=== PATIENT | male | born 1970 | race Caucasian/White ===

== ENCOUNTER 2020-03-07 09:23 | Day surgery (SDC) | payer OTHER ==
[2020-03-04 12:22] VITALS: BMI 34.8
[2020-03-07] MEDS ORDERED: BUPIVACAINE HCL/PF 0.25% (2.5MG/ML) 10 ML VIAL ONE (12:03)
[2020-03-07] MEDS ORDERED: LIDOCAINE HCL 1%, 10 MG/ML (20ML VIAL) ONE (12:03)
[2020-03-07] MEDS ORDERED: BUPIVACAINE HCL/PF 2.5 MG/ML - 30 ML VIAL IJ ONE (12:07)
[2020-03-07] MEDS ORDERED: LIDOCAINE HCL 1%, 10 MG/ML (20ML VIAL) NR ONE (12:07)
[2020-03-07] MEDS ORDERED: ONDANSETRON 4 MG/2 ML VIAL ONE (12:18)
[2020-03-07] MEDS ORDERED: DEXAMETHASONE SOD PHOSPHATE 4 MG/1 ML VIAL ONE (12:18)
--- NOTE | 2020-03-07 12:33 | OP ---
Operative Note - Note: Operative Date: 03/07/20 Pre-Operative Diagnosis: right trigger thumb Operation: right trigger thumb release, tendon sheath excision, mass/ganglion cyst excision Post-Operative Diagnosis: Same as Pre-op Surgeon: Angel Gambino Anesthesiologist/CONTINUOUS IMPROVEMENT ENGINEER: Karthik Cruz Anesthesia: Local, MAC Specimens Removed: right thumb tendon sheath excision, mass/ganglion Estimated Blood Loss (mls): 0 Drains, Volume Out (mls): 0 Blood Volume Replaced (mls): 0 Fluid Volume Replaced (mls): 1,000 Operative Report Dictated: Yes
--- NOTE | 2020-03-07 12:35 | HP ---
Satellite [facility] - Chief Complaint Chief Complaint: right thumb pain History of Present Illness: right trigger thumb History Source: Patient Limitations to Obtaining History: No Limitations - Past Medical History Allergies/Adverse Reactions: Allergies Allergy/AdvReac Type Severity Reaction Status Date / Time No Known Drug Allergies Allergy Verified 03/07/20 10:47 pollen extracts Allergy Verified 03/07/20 10:47 - Current Medications Current Medications: Home Medications Medication Instructions Recorded NK [No Known Home Medication] 03/04/20 Satellite Physical Exam - Physical Examination Vital Signs: Vital Signs Period Temp Pulse Resp BP Sys/Col[place]res Pulse Ox Last 24 Hr 98.7 F 90 18 148/85 98 General Appearance: Well Nourished ENT: Clear Lung: Clear to auscultation Heart: Regular rate & rhythm Breasts: Soft Abdomen: Soft Extremities: No edema Satellite Impression/Plan - Impression/Plan Impression: right trigger thumb Operative Procedure: right trigger thumb release, tendon sheath excision Date to be Performed: 03/07/20
[2020-03-07 13:02] VITALS: TEMP 97.8
--- NOTE | 2020-03-07 13:03 | SPEC ---
DATE OF OPERATION: 03/07/2020 PREOPERATIVE DIAGNOSIS: Right trigger thumb and possible mass. POSTOPERATIVE DIAGNOSIS: Right trigger thumb and mass/ganglion cyst. SURGERY: Right thumb trigger thumb release, tendon sheath excision and excision of mass/ganglion cyst. SURGEON: Sharmin Jaquez MD ASSISTANTS: None. ANESTHESIOLOGIST: Wil Cruz CRNA ANESTHESIA: Light MAC anesthesia and local injection of 10 mL 0.5% Marcaine, 1% lidocaine mixed. DRAINS: None. COMPLICATIONS: None. SPECIMEN: Right thumb tendon sheath and mass/ganglion cyst. BLOOD LOSS: None. BLOOD GIVEN: None. FLUID REPLACEMENT: Plasma-Lyte 1000 mL INDICATIONS: This patient is a 49-year-old male with a preoperative diagnosis of recurrent right trigger thumb with failed nonoperative treatments. After understanding the potential risks, complications, alternatives and benefits of surgery versus nonsurgical treatment, the patient elected to undergo this procedure. PROCEDURE: The patient was brought to the operating room. IV was placed. IV sedation was given. One gram of intravenous Ancef given. A tourniquet was applied to the right upper arm and the right upper extremity was prepped and draped in sterile fashion. The entire case was done under 3.8 loupe magnification. A marking pen was utilized to zuly out a longitudinal incision in an already existing skin crease at the base of the right thumb. Then 10 mL of 0.5% Marcaine mixed with 1% lidocaine was injected in and around the incision. The right upper extremity was elevated, exsanguinated with an Esmarch bandage and the tourniquet inflated to 250 mmHg. A No. 15 scalpel blade was utilized to cut down through the skin. Subcutaneous hemostasis was achieved with the bipolar cautery. Additional dissection was done with Littler scissors until I was able to directly visualize the A1 nataly sheath in its entirety. Self-retaining retractors were placed into the wound. A [place] elevator was used to free up the tissue on the radial side, the ulnar side distally and proximally under better visualization of A1 nataly sheath. Next, using a fresh No. 15 scalpel blade, I excised the central one-third of the A1 nataly sheath and passed it off the field as specimen, tendon sheath, right thumb. I then completed the release, both distally and proximally, and brought the FDS and FDP tendons out through the wound with a Ragnell retractor. There were no abnormal points of compression. I was able to move the right thumb without the tendons bunching up at all. I was able to identify an abnormal mass on the anterior aspect of the tendon sheath. It measured about 4-mm x 4-mm, roughly round, looked to be a blood-filled ganglion cyst that was adherent to the anterior aspect of the flexor tendon. It was dissected free of the flexor tendon with a Littler scissors and passed off the field as specimen, right thumb mass/ganglion cyst. The area was then copiously irrigated and washed out. I then checked one more time to make sure there were no abnormal points of compression. None were seen and therefore closure was begun. One stitch using 4-0 Vicryl was used in the deep dermal layer. Skin was reapproximated with 4-0 nylon sutures in a horizontal mattress fashion. The area was then washed and dried, covered with Xeroform gauze, sterile 4 x 4s, fluffs between the fingers, Webril and Coban. The tourniquet was taken down after a total tourniquet time of 15 minutes. There were no complications during the case. The patient tolerated the procedure well and was brought to the Ambulatory Recovery Room in stable condition. SHARMIN JAQUEZ M.D. [id number]
[2020-03-07 13:28] VITALS: BP 148/89; PULSE 84
--- NOTE | 2020-03-11 16:40 | PATH ---
Surgical Pathology Report Patient Name: NICOLE VELEZ Med. Rec. #: [id number] /Age/Gender: 1970 (Age: 49) / M Account: [id number] Location: [facility] Taken: 03/07/2020 Received: 03/07/2020 Reported: 03/11/2020 Physicians: Angel Gambino M.D. Specimen(s) Received RIGHT MASS THUMB Clinical History Right trigger thumb release Final Diagnosis THUMB, RIGHT, MASS, EXCISION: GANGLION CYST. Electronically Signed Lynsey Urena M.D. Gross Description Received in formalin, labeled "right mass thumb" are three pieces of pink barnes cystic appearing tissue, ranging from 0.3-1.2 cm in greatest dimension. Entirely submitted in one cassette. AE/03/07/2020 ebram/03/07/2020
== END 2020-03-07 13:30 | disposition left against medical advice (07) ==
LOC: FASU 09:23
PROVIDERS: ATTEND Orthopaedic Surgery
PROC: 0LB70ZZ Excision of Right Hand Tendon, Open Approach (ICD-10-PCS; 2020-03-07)
PROC: 0LN70ZZ Release Right Hand Tendon, Open Approach (ICD-10-PCS; principal; 2020-03-07 12:08)
DX: M65.311 Trigger thumb, right thumb (principal); M67.441 Ganglion, right hand
CPT/HCPCS: 88307-TC

== ENCOUNTER 2022-03-11 19:52 | Inpatient (IN) | payer SELFPAY ==
[2022-03-11] MEDS ORDERED: KETOROLAC TROMETHAMINE 15 MG/ML VIAL IVPUSH ONE (20:53)
[2022-03-11] MEDS ORDERED: SODIUM CHLORIDE 1,000 ML IV STA (20:54)
[2022-03-11] MEDS ORDERED: ONDANSETRON 4 MG/2 ML VIAL IVPUSH ONE (20:54)
[2022-03-11] MEDS ORDERED: ONDANSETRON 4 MG/2 ML VIAL ONE (21:05)
[2022-03-11] MEDS ORDERED: KETOROLAC TROMETHAMINE 15 MG/ML VIAL ONE (21:05)
[2022-03-11 21:51] LABS: BASO % 0.1 % (0-2.0); HEMATOCRIT 49.6 % (35.4-49); HEMOGLOBIN 16.4 GM/dL (11.7-16.9); LYMPH % 10.3 % (8-40); MEAN CELL VOLUME 84.8 fl (80-96); MEAN PLT VOLUME 6.8 fl (7.5-11.1); MONO % 5.7 % (3.8-10.2); NEUT % 83.9 % (42.8-82.8); PLATELET COUNT 259 10^3/uL (134-434); RBC 5.85 M/mm3 (4.00-5.60); RDW 14.9 % (11.9-15.9); WHITE BLOOD COUNT 6.3 K/mm3 (4.0-10.0)
[2022-03-11] MEDS ORDERED: morphine CARPU-JECT 4 MG/1 ML DISP.SYRIN IVPUSH ONE (22:08)
[2022-03-11 22:09] LABS: INR 1.04 (0.83-1.09)
[2022-03-11 22:11] LABS: ACTIVATED PTT 28.9 SECONDS (25.2-36.5)
[2022-03-11 22:13] LABS: ALBUMIN 4.4 g/dl (3.4-5.0); BLOOD UREA NITROGEN 13.5 mg/dL (7-18); CALCIUM 9.8 mg/dL (8.5-10.1)
[2022-03-11 22:16] LABS: CREATININE 1.6 mg/dL (0.55-1.3)
[2022-03-11 22:17] LABS: TOT PROT 7.8 g/dl (6.4-8.2)
[2022-03-11 22:18] LABS: BILIRUBIN,TOTAL 0.5 mg/dL (0.2-1)
[2022-03-11] MEDS ORDERED: morphine SULFATE 4 MG/ML VIAL ONE (22:25)
[2022-03-11 22:49] LABS: EPI CELLS 2 /uL (0-25.1); HYALINE CASTS 0 /uL (0-3.1); PH,URINE 5.5 (5.0-8.0); URINE APPEARANCE CLOUDY; URINE BACTERIA 11 /uL (0-1359); URINE BILIRUBIN NEGATIVE (NEGATIVE); URINE COLOR YELLOW; URINE GLUCOSE (UA) NEGATIVE (NEGATIVE); URINE KETONE NEGATIVE (NEGATIVE); URINE LEUK ESTERASE NEGATIVE (NEGATIVE); URINE NITRITE NEGATIVE (NEGATIVE); URINE PROTEIN TRACE (NEGATIVE); URINE UROBILINOGEN 0.2 mg/dL (0.2-1.0); URINE WBC 8 /uL (0-25.8)
[2022-03-11 23:35] LABS: URINE RBC 152 /uL (0-23.9)
[2022-03-12] MEDS ORDERED: ACETAMINOPHEN 1000 MG/100 ML BAG IVPB PRN ×3 (00:38→17:12)
[2022-03-12] MEDS ORDERED: DEXTROSE 5%-0.45% SALINE 1,000 ML IV SCH ×2 (00:45→17:12)
[2022-03-12] MEDS ORDERED: morphine SULFATE 4 MG/ML VIAL ONE (01:53)
[2022-03-12] MEDS ORDERED: morphine SULFATE 4 MG/ML VIAL IVPUSH PRN ×2 (03:00→17:12)
[2022-03-12 04:04] VITALS: BMI 42.6
[2022-03-12 09:52] LABS: BASO % 0.2 % (0-2.0); EOS % 0.1 % (0-4.5); HEMATOCRIT 47.1 % (35.4-49); HEMOGLOBIN 15.7 GM/dL (11.7-16.9); LYMPH % 8.6 % (8-40); MCH 28.1 pg (25.7-33.7); MCHC 33.5 g/dl (32.0-35.9); MEAN CELL VOLUME 83.9 fl (80-96); MEAN PLT VOLUME 7.1 fl (7.5-11.1); MONO % 9.6 % (3.8-10.2); NEUT % 81.5 % (42.8-82.8); PLATELET COUNT 252 10^3/uL (134-434); RBC 5.61 M/mm3 (4.00-5.60); RDW 15.2 % (11.9-15.9); WHITE BLOOD COUNT 8.5 K/mm3 (4.0-10.0)
[2022-03-12 10:21] LABS: ALBUMIN 3.9 g/dl (3.4-5.0); BLOOD UREA NITROGEN 14.2 mg/dL (7-18); CALCIUM 9.2 mg/dL (8.5-10.1)
[2022-03-12 10:25] LABS: CREATININE 1.7 mg/dL (0.55-1.3)
[2022-03-12 10:26] LABS: BILIRUBIN,TOTAL 0.9 mg/dL (0.2-1); TOT PROT 7.2 g/dl (6.4-8.2)
[2022-03-12] MEDS ORDERED: LIDOCAINE HCL/PF 2% SDV 5ML VIAL ONE (14:54)
[2022-03-12] MEDS ORDERED: DEXAMETHASONE SOD PHOSPHATE 4 MG/1 ML VIAL ONE (14:54)
[2022-03-12] MEDS ORDERED: PROPOFOL 20 ML ONE ×2 (14:54→15:20)
[2022-03-12] MEDS ORDERED: MIDAZOLAM HCL 2 MG/2 ML SINGLE DOSE VIAL ONE (14:55)
[2022-03-12] MEDS ORDERED: GENTAMICIN SO4 80 MG/2 ML VIAL IVPB ONE (15:20)
[2022-03-12] MEDS ORDERED: ceFAZolin SODIUM 1 GM VIAL IVPB ONE (15:25)
[2022-03-12] MEDS ORDERED: GENTAMICIN SO4 80 MG/2 ML VIAL ONE (15:29)
[2022-03-12] MEDS ORDERED: ceFAZolin SODIUM 1 GM VIAL ONE (15:29)
[2022-03-12] MEDS ORDERED: ONDANSETRON 4 MG/2 ML VIAL IVPUSH PRN (16:02)
[2022-03-12] MEDS ORDERED: LACTATED RINGERS SOLUTION 1,000 ML IV SCH (16:15)
[2022-03-12] MEDS ORDERED: PEG 3350/NA SULF BICARB CL/KCL 4000 ML SOLN.RECON PO ONE (17:28)
[2022-03-13 09:51] LABS: INR 1.19 (0.83-1.09); PROTHROMBIN TIME (PATIENT) 13.7 SEC (9.7-13.0)
[2022-03-13 09:52] LABS: BASO % 0.3 % (0-2.0); EOS % 0.1 % (0-4.5); HEMATOCRIT 47.4 % (35.4-49); HEMOGLOBIN 15.9 GM/dL (11.7-16.9); MCH 28.3 pg (25.7-33.7); MCHC 33.6 g/dl (32.0-35.9); MEAN CELL VOLUME 84.1 fl (80-96); MONO % 8.2 % (3.8-10.2); NEUT % 79.4 % (42.8-82.8); PLATELET COUNT 254 10^3/uL (134-434); RBC 5.63 M/mm3 (4.00-5.60); WHITE BLOOD COUNT 7.9 K/mm3 (4.0-10.0)
[2022-03-13 10:31] LABS: BLOOD UREA NITROGEN 12.5 mg/dL (7-18); CALCIUM 9.4 mg/dL (8.5-10.1)
[2022-03-13 10:35] LABS: CREATININE 1.3 mg/dL (0.55-1.3)
[2022-03-13] MEDS ORDERED: POLYETHYLENE GLYCOL (HEALTHYLAX) 3350 17 GM PACKET PO SCH (14:00)
[2022-03-13 17:13] VITALS: BP 139/91; PULSE 80; RESP 16; TEMP 98.4
[2022-03-15] MEDS ORDERED: PEG 3350/NA SULF BICARB CL/KCL 4000 ML SOLN.RECON PO ONE (17:00)
[2022-03-15] MEDS ORDERED: BISACODYL 5 MG TABLET.DR (FP) PO SCH (20:00)
[2022-03-16] MEDS ORDERED: PEG 3350/NA SULF BICARB CL/KCL 4000 ML SOLN.RECON PO ONE (17:00)
[2022-03-19 16:08] LABS: CA OXALATE MONOHYDR. 30 % (.); SIZE 6x4 mm (.); WEIGHT 36 mg (.)
== END 2022-03-13 17:45 | disposition home or self-care (01) | DRG 446 ==
LOC: JER 19:52 → JERBED 03-12 00:15 → J6S 03-12 02:55
PROVIDERS: ADMIT Internal Medicine; ATTEND Internal Medicine
PROC: 0T768DZ Dilation of Right Ureter with Intraluminal Device, Via Natural or Artificial Opening Endoscopic (ICD-10-PCS; 2022-03-12 15:00)
PROC: BT1DZZZ Fluoroscopy of Right Kidney, Ureter and Bladder (ICD-10-PCS; 2022-03-12 15:00)
PROC: 0TC68ZZ Extirpation of Matter from Right Ureter, Via Natural or Artificial Opening Endoscopic (ICD-10-PCS; 2022-03-12 15:00)
PROC: 0DJD8ZZ Inspection of Lower Intestinal Tract, Via Natural or Artificial Opening Endoscopic (ICD-10-PCS; principal; 2022-03-13 09:45)
DX: N13.2 Hydronephrosis with renal and ureteral calculous obstruction (principal); K63.9 Disease of intestine, unspecified; I10 Essential (primary) hypertension; R31.0 Gross hematuria; G47.30 Sleep apnea, unspecified; K76.0 Fatty (change of) liver, not elsewhere classified; R93.5 Abnormal findings on diagnostic imaging of other abdominal regions, including retroperitoneum; K52.9 Noninfective gastroenteritis and colitis, unspecified; K64.8 Other hemorrhoids; E66.01 Morbid (severe) obesity due to excess calories; Z68.41 Body mass index [BMI] 40.0-44.9, adult
CPT/HCPCS: 36415; 74176-TC; 76000-TC-FY; 80048; 80053; 81003; 82360; 82378; 83690; 85025; 85610; 85730; 86140; 87086; 88108; 88300-TC; 94010; 94760; 99285-25; C2617; C9803-CS; U0003; U0005

== ENCOUNTER 2023-08-09 12:11 | Day surgery (SDC) | payer OTHER ==
[2023-08-09] MEDS ORDERED: ONDANSETRON 4 MG/2 ML VIAL IVPUSH ONE (13:37)
[2023-08-09] MEDS ORDERED: KETOROLAC TROMETHAMINE 30 MG/1 ML VIAL IVPUSH ONE ×2 (13:37→13:40)
[2023-08-09] MEDS ORDERED: ACETAMINOPHEN 1000 MG/100 ML BAG IVPB ONE (13:38)
[2023-08-09] MEDS ORDERED: LACTATED RINGERS SOLUTION 1000 ML INFUS.BAG IV ONE ×2 (13:45→15:00)
[2023-08-09 14:04] LABS: BASO % 0.5 % (0-2.0); EOS % 0.5 % (0-4.5); HEMOGLOBIN 15.3 GM/dL (11.7-16.9); LYMPH % 10.3 % (8-40); MCHC 33.3 g/dl (32.0-35.9); MEAN CELL VOLUME 84.1 fl (80-96); MEAN PLT VOLUME 6.9 fl (7.5-11.1); MONO % 5.2 % (3.8-10.2); NEUT % 83.5 % (42.8-82.8); PLATELET COUNT 249 10^3/uL (134-434); RBC 5.48 M/mm3 (4.00-5.60); RDW 15.1 % (11.9-15.9); WHITE BLOOD COUNT 6.2 K/mm3 (4.0-10.0)
[2023-08-09] MEDS ORDERED: ONDANSETRON 4 MG/2 ML VIAL ONE (14:04)
[2023-08-09] MEDS ORDERED: KETOROLAC TROMETHAMINE 30 MG/1 ML VIAL ONE (14:04)
[2023-08-09] MEDS ORDERED: ACETAMINOPHEN INJECTION 100 ML IVPB ONE (14:04)
[2023-08-09 14:07] LABS: URINE APPEARANCE CLEAR; URINE BILIRUBIN NEGATIVE (NEGATIVE); URINE COLOR YELLOW; URINE GLUCOSE (UA) NEGATIVE (NEGATIVE); URINE KETONE NEGATIVE (NEGATIVE); URINE LEUK ESTERASE NEGATIVE (NEGATIVE); URINE NITRITE NEGATIVE (NEGATIVE); URINE PROTEIN NEGATIVE (NEGATIVE); URINE UROBILINOGEN 0.2 mg/dL (0.2-1.0)
[2023-08-09 14:25] LABS: POTASSIUM 5.6 mmol/L (3.5-5.1)
[2023-08-09 14:29] LABS: ALBUMIN 4.1 g/dl (3.4-5.0); BLOOD UREA NITROGEN 9.7 mg/dL (7-18); CALCIUM 9.2 mg/dL (8.5-10.1)
[2023-08-09 14:32] LABS: CREATININE 2.2 mg/dL (0.55-1.3)
[2023-08-09 14:34] LABS: TOT PROT 7.7 g/dl (6.4-8.2)
[2023-08-09 15:52] LABS: POTASSIUM 4.1 mmol/L (3.5-5.1)
[2023-08-09 15:53] LABS: BLOOD UREA NITROGEN 10.6 mg/dL (7-18); CALCIUM 9.3 mg/dL (8.5-10.1)
[2023-08-09 15:57] LABS: CREATININE 2.2 mg/dL (0.55-1.3)
[2023-08-09] MEDS ORDERED: CEFTRIAXONE 1 GM/50 ML BAG ONE (18:03)
[2023-08-09 18:17] VITALS: RESP 18
[2023-08-09 22:55] VITALS: BMI 33.0
[2023-08-09] MEDS ORDERED: SODIUM CHLORIDE 1,000 ML IV SCH (23:00)
[2023-08-10] MEDS ORDERED: HEPARIN NA (PORCINE) 5,000 UNITS/ML 1ML VIAL SQ SCH ×2 (06:00→14:00)
[2023-08-10] MEDS ORDERED: LACTATED RINGERS SOLUTION 1,000 ML IV SCH ×2 (06:45→08:00)
[2023-08-10] MEDS ORDERED: MIDAZOLAM HCL 2 MG/2 ML SINGLE DOSE VIAL ONE (07:00)
[2023-08-10] MEDS ORDERED: FENTANYL CITRATE/PF 50 MCG/ML VIAL IVPUSH PRN (07:00)
[2023-08-10] MEDS ORDERED: PROPOFOL 40 ML ONE (07:00)
[2023-08-10] MEDS ORDERED: ACETAMINOPHEN WITH CODEINE 300MG/30MG TABLET PO PRN (07:19)
[2023-08-10] MEDS ORDERED: ACETAMINOPHEN 325 MG TABLET (FP) PO PRN (07:20)
[2023-08-10] MEDS ORDERED: ONDANSETRON 4 MG/2 ML VIAL IVPUSH PRN (07:59)
[2023-08-10] MEDS ORDERED: PROMETHAZINE HCL 25 MG/1 ML VIAL IVPB PRN (07:59)
[2023-08-10] MEDS ORDERED: SODIUM CHLORIDE 1,000 ML IV SCH (08:10)
[2023-08-10] MEDS ORDERED: TAMSULOSIN HCL 0.4 MG CAP PO SCH ×2 (08:30)
[2023-08-10] MEDS ORDERED: amLODIPine BESYLATE 10 MG TABLET (FP) PO SCH (10:00)
[2023-08-10] MEDS ORDERED: CEFTRIAXONE 1 GM in DEXTROSE 5%-WATER - 50 ML IVPB SCH (10:00)
[2023-08-10] MEDS: amLODIPine BESYLATE 10 MG TABLET (FP) PO SCH ×2 (10:25→10:32)
[2023-08-10 10:52] VITALS: BP 131/72; PULSE 54; TEMP 97.3
[2023-08-10 11:39] LABS: BASO % 0.3 % (0-2.0); EOS % 0.3 % (0-4.5); HEMATOCRIT 46.7 % (35.4-49); HEMOGLOBIN 15.6 GM/dL (11.7-16.9); LYMPH % 7.7 % (8-40); MCH 28.5 pg (25.7-33.7); MCHC 33.4 g/dl (32.0-35.9); MEAN CELL VOLUME 85.2 fl (80-96); MONO % 2.6 % (3.8-10.2); NEUT % 89.1 % (42.8-82.8); PLATELET COUNT 240 10^3/uL (134-434); RBC 5.48 M/mm3 (4.00-5.60); RDW 15.2 % (11.9-15.9); WHITE BLOOD COUNT 4.9 K/mm3 (4.0-10.0)
[2023-08-10 11:43] LABS: POTASSIUM 4.5 mmol/L (3.5-5.1)
[2023-08-10 11:49] LABS: CALCIUM 9.7 mg/dL (8.5-10.1)
[2023-08-10 11:50] LABS: ALBUMIN 4.1 g/dl (3.4-5.0); BLOOD UREA NITROGEN 14.8 mg/dL (7-18); MAGNESIUM 2.2 mg/dL (1.8-2.4)
[2023-08-10 11:53] LABS: CREATININE 2.3 mg/dL (0.55-1.3); PHOSPHOROUS 2.6 mg/dL (2.5-4.9)
[2023-08-10 11:55] LABS: BILIRUBIN,TOTAL 0.9 mg/dL (0.2-1)
[2023-08-10] MEDS ORDERED: ROSUVASTATIN CA 10 MG TABLET PO SCH ×2 (22:00)
== END 2023-08-10 18:46 | disposition home or self-care (01) ==
LOC: JER 12:11 → UNDOADMIN 17:22 → JERBED 17:22 → J5S 19:41 → JASUSAT 08-10 09:40 → J5S 08-10 09:47 → JASUSAT 08-10 18:46
PROVIDERS: ATTEND Internal Medicine
PROC: 0T768DZ Dilation of Right Ureter with Intraluminal Device, Via Natural or Artificial Opening Endoscopic (ICD-10-PCS; principal; 2023-08-10 07:00)
DX: N13.2 Hydronephrosis with renal and ureteral calculous obstruction (principal)
CPT/HCPCS: 0241U-QW; 36415; 74176-TC; 76000-TC-FY; 80048; 80053; 81003; 83735; 84100; 85025; 87086; 93005; 93010; 94760; 99285-25; C2617; J0131

== ENCOUNTER 2023-08-16 04:19 | Day surgery (SDC) | payer OTHER ==
[2023-08-13 13:57] VITALS: BMI 34.8
[2023-08-16 08:05] VITALS: RESP 18
[2023-08-16] MEDS ORDERED: MIDAZOLAM HCL 2 MG/2 ML SINGLE DOSE VIAL ONE (11:15)
[2023-08-16 13:10] VITALS: BP 122/68; PULSE 78; TEMP 97.8
== END 2023-08-16 12:40 | disposition home or self-care (01) ==
LOC: JASU-SURG 04:19
PROVIDERS: ATTEND Urology
PROC: 0TF3XZZ Fragmentation in Right Kidney Pelvis, External Approach (ICD-10-PCS; principal; 2023-08-16 10:00)
DX: N20.0 Calculus of kidney (principal)

== ENCOUNTER 2023-09-26 03:21 | Day surgery (SDC) | payer OTHER ==
[2023-09-26] MEDS ORDERED: TAMSULOSIN HCL 0.4 MG CAP ONE (04:08)
[2023-09-26] MEDS ORDERED: KETOROLAC TROMETHAMINE 15 MG/ML VIAL ONE (04:08)
[2023-09-26] MEDS ORDERED: ONDANSETRON 4 MG/2 ML VIAL ONE (04:09)
[2023-09-26] MEDS: KETOROLAC TROMETHAMINE 15 MG/ML VIAL IVPUSH ONE (04:32)
[2023-09-26] MEDS: ONDANSETRON 4 MG/2 ML VIAL IVPUSH ONE (04:33)
[2023-09-26] MEDS: TAMSULOSIN HCL 0.4 MG CAP PO ONE (04:33)
[2023-09-26] MEDS: SODIUM CHLORIDE 0.9% 500 ML INFUS.BAG IV ONE (04:33)
[2023-09-26 04:39] LABS: BASO % 0.6 % (0-2.0); EOS % 0.6 % (0-4.5); HEMATOCRIT 45.9 % (35.4-49); HEMOGLOBIN 15.7 GM/dL (11.7-16.9); LYMPH % 11.1 % (8-40); MCHC 34.2 g/dl (32.0-35.9); MEAN PLT VOLUME 6.7 fl (7.5-11.1); MONO % 8.1 % (3.8-10.2); NEUT % 79.6 % (42.8-82.8); PLATELET COUNT 238 10^3/uL (134-434); RDW 14.9 % (11.9-15.9); WHITE BLOOD COUNT 6.5 K/mm3 (4.0-10.0)
[2023-09-26 05:01] LABS: POTASSIUM 4.6 mmol/L (3.5-5.1)
[2023-09-26 05:03] LABS: CALCIUM 9.3 mg/dL (8.5-10.1)
[2023-09-26 05:04] LABS: ALBUMIN 3.8 g/dl (3.4-5.0); BLOOD UREA NITROGEN 13.9 mg/dL (7-18)
[2023-09-26 05:07] LABS: CREATININE 2.6 mg/dL (0.55-1.3)
[2023-09-26 05:08] LABS: TOT PROT 7.8 g/dl (6.4-8.2)
[2023-09-26 05:58] LABS: EPI CELLS 4 /uL (0-25.1); HYALINE CASTS 0 /uL (0-3.1); PH,URINE 6.5 (5.0-8.0); URINE APPEARANCE CLEAR; URINE BACTERIA 1 /uL (0-1359); URINE BILIRUBIN NEGATIVE (NEGATIVE); URINE COLOR YELLOW; URINE GLUCOSE (UA) NEGATIVE (NEGATIVE); URINE KETONE NEGATIVE (NEGATIVE); URINE LEUK ESTERASE TRACE (NEGATIVE); URINE NITRITE NEGATIVE (NEGATIVE); URINE PROTEIN NEGATIVE (NEGATIVE); URINE RBC 16 /uL (0-23.9); URINE UROBILINOGEN 0.2 mg/dL (0.2-1.0); URINE WBC 27 /uL (0-25.8)
[2023-09-26] MEDS ORDERED: DOCUSATE SODIUM 100 MG CAPSULE (FP) PO PRN (06:21)
[2023-09-26] MEDS ORDERED: ACETAMINOPHEN 1000 MG/100 ML BAG IVPB PRN (06:26)
[2023-09-26] MEDS ORDERED: KETOROLAC TROMETHAMINE 15 MG/ML VIAL IVPUSH PRN (10:30)
[2023-09-26] MEDS ORDERED: ONDANSETRON 4 MG/2 ML VIAL IVPUSH PRN (10:40)
[2023-09-26] MEDS: SODIUM CHLORIDE 1,000 ML IV SCH (13:19)
[2023-09-26] MEDS: CEFTRIAXONE 1 GM in DEXTROSE 5%-WATER - 50 ML IVPB SCH (13:36)
[2023-09-26 16:28] VITALS: BMI 40.4
[2023-09-27] MEDS: traMADol HCL 50 MG TABLET PO PRN (03:20)
[2023-09-27 09:15] LABS: INR 1.24 (0.83-1.09); PROTHROMBIN TIME (PATIENT) 14.4 SEC (9.7-13.0)
[2023-09-27 09:20] LABS: BASO % 0.6 % (0-2.0); EOS % 1.2 % (0-4.5); HEMOGLOBIN 14.7 GM/dL (11.7-16.9); LYMPH % 13.1 % (8-40); MCH 27.9 pg (25.7-33.7); MCHC 33.4 g/dl (32.0-35.9); MEAN CELL VOLUME 83.6 fl (80-96); MEAN PLT VOLUME 6.7 fl (7.5-11.1); MONO % 8.9 % (3.8-10.2); NEUT % 76.2 % (42.8-82.8); PLATELET COUNT 237 10^3/uL (134-434); RBC 5.26 M/mm3 (4.00-5.60); RDW 14.7 % (11.9-15.9); WHITE BLOOD COUNT 5.1 K/mm3 (4.0-10.0)
[2023-09-27 09:27] LABS: POTASSIUM 4.8 mmol/L (3.5-5.1)
[2023-09-27 09:28] LABS: BLOOD UREA NITROGEN 20.4 mg/dL (7-18); CALCIUM 9.4 mg/dL (8.5-10.1); MAGNESIUM 2.7 mg/dL (1.8-2.4)
[2023-09-27 09:32] LABS: CREATININE 2.5 mg/dL (0.55-1.3)
[2023-09-27] MEDS: amLODIPine BESYLATE 10 MG TABLET (FP) PO SCH (11:03)
[2023-09-27] MEDS ORDERED: PROPOFOL 40 ML ONE (15:50)
[2023-09-27] MEDS ORDERED: SUCCINYLCHOLINE CHLORIDE 200 MG/10 ML SYRINGE ONE (15:50)
[2023-09-27] MEDS ORDERED: FENTANYL CITRATE/PF 50 MCG/ML VIAL ONE ×2 (15:50→15:51)
[2023-09-27] MEDS: ceFAZolin SODIUM 1 GM VIAL IVPB ONE (16:09)
[2023-09-27] MEDS ORDERED: PROPOFOL 20 ML ONE (16:14)
[2023-09-27] MEDS ORDERED: SODIUM CHLORIDE 1,000 ML IV SCH (16:52)
[2023-09-27] MEDS ORDERED: traMADol HCL 50 MG TABLET PO PRN (16:52)
[2023-09-27] MEDS ORDERED: DOCUSATE SODIUM 100 MG CAPSULE (FP) PO PRN (16:52)
[2023-09-27] MEDS ORDERED: ONDANSETRON 4 MG/2 ML VIAL IVPUSH PRN (16:52)
[2023-09-28 02:23] VITALS: RESP 18; TEMP 98.3
[2023-09-28 07:58] VITALS: BP 146/90; PULSE 97
[2023-09-28] MEDS: amLODIPine BESYLATE 10 MG TABLET (FP) PO SCH (09:00)
[2023-09-28] MEDS: CEFTRIAXONE 1 GM in DEXTROSE 5%-WATER - 50 ML IVPB SCH (09:08)
== END 2023-09-28 15:11 | disposition home or self-care (01) ==
LOC: JER 03:21 → JASUSAT 06:02 → JERBED 06:02 → UNDOADMOB 06:02 → J5S 12:13 → JERBED 12:13 → J5S 09-27 16:51 → JASUSAT 09-28 15:11
PROVIDERS: ATTEND Family Medicine
PROC: 0T768DZ Dilation of Right Ureter with Intraluminal Device, Via Natural or Artificial Opening Endoscopic (ICD-10-PCS; principal; 2023-09-26)
DX: N13.2 Hydronephrosis with renal and ureteral calculous obstruction (principal); I12.9 Hypertensive chronic kidney disease with stage 1 through stage 4 chronic kidney disease, or unspecified chronic kidney disease; N18.9 Chronic kidney disease, unspecified
CPT/HCPCS: 36415; 74176-TC; 74420-TC-FY; 76000-TC-FY; 80048; 80053; 81003; 83605; 83690; 83735; 85025; 85610; 87086; 93005; 93010; 94760; 99285-25; C2617

== ENCOUNTER 2023-10-11 03:59 | Day surgery (SDC) | payer OTHER ==
[2023-10-04 14:12] VITALS: BMI 34.8
[2023-10-11 08:43] VITALS: RESP 18
[2023-10-11] MEDS ORDERED: MIDAZOLAM HCL 2 MG/2 ML SINGLE DOSE VIAL ONE (09:44)
[2023-10-11] MEDS ORDERED: FENTANYL CITRATE/PF 50 MCG/ML VIAL ONE (09:44)
[2023-10-11 13:00] VITALS: BP 128/80; PULSE 71; TEMP 98.5
== END 2023-10-11 11:00 | disposition home or self-care (01) ==
LOC: JASU-SURG 03:59
PROVIDERS: ATTEND Urology
PROC: 0TF3XZZ Fragmentation in Right Kidney Pelvis, External Approach (ICD-10-PCS; principal; 2023-10-11 10:00)
DX: N20.0 Calculus of kidney (principal)

== ENCOUNTER 2024-01-31 05:43 | Day surgery (SDC) | payer OTHER ==
[2024-01-28 12:46] VITALS: BMI 34.8
[2024-01-31] MEDS ORDERED: MIDAZOLAM HCL 2 MG/2 ML SINGLE DOSE VIAL ONE (10:32)
[2024-01-31] MEDS ORDERED: PROPOFOL 20 ML ONE (10:32)
[2024-01-31] MEDS ORDERED: LIDOCAINE HCL/PF 2% SDV 5ML VIAL ONE (10:32)
[2024-01-31] MEDS: ceFAZolin SODIUM 1 GM VIAL IVPB ONE ×2 (11:02)
[2024-01-31] MEDS: GENTAMICIN 80MG PREMIX BAG IVPB ONE (11:02)
[2024-01-31] MEDS ORDERED: DEXAMETHASONE SOD PHOSPHATE 4 MG/1 ML VIAL ONE (11:03)
[2024-01-31] MEDS ORDERED: GENTAMICIN SO4 80 MG/2 ML VIAL ONE (11:03)
[2024-01-31] MEDS ORDERED: ceFAZolin SODIUM 1 GM VIAL ONE (11:03)
[2024-01-31] MEDS ORDERED: oxyCODONE HCL 5 MG TABLET PO PRN ×2 (12:00)
[2024-01-31] MEDS ORDERED: LACTATED RINGERS SOLUTION 1,000 ML IV SCH (12:00)
[2024-01-31] MEDS ORDERED: PROMETHAZINE HCL 25 MG/1 ML VIAL IVPB PRN (12:00)
[2024-01-31] MEDS ORDERED: ONDANSETRON 4 MG/2 ML VIAL IVPUSH PRN (12:00)
[2024-01-31] MEDS ORDERED: ACETAMINOPHEN 1000 MG/100 ML BAG IVPB ONE (12:01)
[2024-01-31] MEDS ORDERED: KETOROLAC TROMETHAMINE 30 MG/1 ML VIAL ONE (12:08)
[2024-01-31 13:14] VITALS: BP 130/78; PULSE 80; RESP 20; TEMP 97.9
== END 2024-01-31 13:35 | disposition home or self-care (01) ==
LOC: JASU-SURG 05:43
PROVIDERS: ATTEND Urology
PROC: 0TF68ZZ Fragmentation in Right Ureter, Via Natural or Artificial Opening Endoscopic (ICD-10-PCS; principal; 2024-01-31 11:00)
PROC: 0T768DZ Dilation of Right Ureter with Intraluminal Device, Via Natural or Artificial Opening Endoscopic (ICD-10-PCS; 2024-01-31 11:00)
DX: N13.2 Hydronephrosis with renal and ureteral calculous obstruction (principal)
CPT/HCPCS: 76000-TC-FY; 94760; C1758; C2617

== ENCOUNTER 2024-02-28 04:12 | Day surgery (SDC) | payer OTHER ==
[2024-02-24 17:44] VITALS: BMI 34.8
[2024-02-28 11:18] VITALS: RESP 18
[2024-02-28 11:47] VITALS: TEMP 97.7
[2024-02-28 12:07] VITALS: BP 135/76; PULSE 67
== END 2024-02-28 12:02 | disposition home or self-care (01) ==
LOC: JASU-SURG 04:12
PROVIDERS: ATTEND Urology
PROC: 0TF3XZZ Fragmentation in Right Kidney Pelvis, External Approach (ICD-10-PCS; principal; 2024-02-28 10:52)
DX: N20.0 Calculus of kidney (principal)

== ENCOUNTER 2024-04-08 09:42 | Emergency (ER) | payer OTHER ==
[2024-04-08 09:53] VITALS: RESP 20; BMI 38.3
[2024-04-08 12:05] LABS: BASO % 0.5 % (0-2.0); EOS % 0.9 % (0-4.5); HEMATOCRIT 47.5 % (35.4-49); HEMOGLOBIN 15.6 GM/dL (11.7-16.9); MCH 27.9 pg (25.7-33.7); MCHC 32.9 g/dl (32.0-35.9); MEAN CELL VOLUME 84.9 fl (80-96); MEAN PLT VOLUME 6.3 fl (7.5-11.1); MONO % 6.6 % (3.8-10.2); PLATELET COUNT 280 10^3/uL (134-434); RDW 16.2 % (11.9-15.9); WHITE BLOOD COUNT 5.5 K/mm3 (4.0-10.0)
[2024-04-08 12:23] LABS: POTASSIUM 3.8 mmol/L (3.5-5.1)
[2024-04-08 12:25] LABS: CALCIUM 9.9 mg/dL (8.5-10.1)
[2024-04-08 12:26] LABS: ALBUMIN 4.4 g/dl (3.4-5.0); BLOOD UREA NITROGEN 8.3 mg/dL (7-18)
[2024-04-08 12:29] LABS: CREATININE 1.4 mg/dL (0.55-1.3)
[2024-04-08 12:30] LABS: TOT PROT 8.3 g/dl (6.4-8.2)
[2024-04-08 14:26] VITALS: BP 146/86; PULSE 66; TEMP 99
== END 2024-04-08 15:17 | disposition home or self-care (01) ==
LOC: JER 09:42
DX: R20.0 Anesthesia of skin (principal); R20.2 Paresthesia of skin; R29.898 Other symptoms and signs involving the musculoskeletal system
CPT/HCPCS: 36415; 70450-TC; 71046-TC-FY; 72125-TC; 80053; 82962; 84484; 85025; 93005; 93010; 99285-25